=== PATIENT | female | born 1990 | race Caucasian/White ===

== ENCOUNTER 2019-10-04 21:24 | Emergency (ER) | payer OTHER ==
[~2019-10-04] VITALS: Ht 160 cm; Wt 52.6 kg
[2019-10-05] MEDS ORDERED: ZYNCOF 20-400120 ML PO (02:57)
[2019-10-05] MEDS ORDERED: INTESTINEX680 M1 PO (02:58)
== END 2019-10-05 03:04 ==
LOC: ER 21:24
DX: J11.1 Influenza due to unidentified influenza virus with other respiratory manifestations (principal)

== ENCOUNTER 2021-08-13 20:42 | Inpatient (IN) | payer OTHER ==
[~2021-08-13] VITALS: Ht 160 cm; Wt 68.0 kg
[~2021-08-13 20:42] MED LIST: INTESTINEX680 M1 PO; ZYNCOF 20-400120 ML PO
[2021-08-13] MEDS ORDERED: PRENATABS RX T1 EACH PO (21:05)
[2021-08-14] MEDS ORDERED: FAMOTIDINE20 MG (08:18)
[2021-08-14] MEDS ORDERED: ONDANSETRON ODT4 MG (08:18)
== END 2021-08-14 09:00 | disposition home or self-care (01) | DRG 833 ==
LOC: LDR 20:42
PROVIDERS: ADMIT Obstetrics & Gynecology Maternal & Fetal Medicine; ATTEND Obstetrics & Gynecology Maternal & Fetal Medicine
DX: O47.02 False labor before 37 completed weeks of gestation, second trimester (principal); Z3A.27 27 weeks gestation of pregnancy

== ENCOUNTER 2021-11-04 05:34 | Inpatient (IN) | payer OTHER ==
[~2021-11-04] VITALS: Ht 160 cm; Wt 75.7 kg
[~2021-11-04 05:34] MED LIST changes: +FAMOTIDINE20 MG; +ONDANSETRON ODT4 MG; +PRENATABS RX T1 EACH PO
[2021-11-06] MEDS ORDERED: KETO10TA2 PO (07:58)
[2021-11-06] MEDS ORDERED: OXYC1TAB9 PO (07:59)
== END 2021-11-06 12:23 | disposition home or self-care (01) | DRG 798 ==
LOC: LDR 05:34 → OB/GYN 15:04
PROVIDERS: ADMIT Obstetrics & Gynecology Maternal & Fetal Medicine; ATTEND Obstetrics & Gynecology Maternal & Fetal Medicine
PROC: 10E0XZZ Delivery of Products of Conception, External Approach (ICD-10-PCS; principal; 2021-11-04)
PROC: 4A1HXCZ Monitoring of Products of Conception, Cardiac Rate, External Approach (ICD-10-PCS; 2021-11-04)
PROC: 0UB70ZZ Excision of Bilateral Fallopian Tubes, Open Approach (ICD-10-PCS; 2021-11-04)
DX: O80 Encounter for full-term uncomplicated delivery (principal); Z37.0 Single live birth; Z3A.39 39 weeks gestation of pregnancy; Z30.2 Encounter for sterilization; Z20.822 Contact with and (suspected) exposure to COVID-19